=== PATIENT | female | born 1985 | race Two or more races ===

== ENCOUNTER 2024-07-04 19:50 | Emergency (ER) | payer MEDICAID ==
[~2024-07-04] VITALS: Ht 182.9 cm; Wt 83.5 kg
[2024-07-04 20:00] VITALS: BP 115/78; PULSE 92; RESP 16; O2SAT 100
[2024-07-04] MEDS ORDERED: CEPH250C PO (21:59)
[2024-07-04] MEDS ORDERED: IBUP-1455 PO (21:59)
[2024-07-04] MEDS ORDERED: IBUPROFEN 800 MG TAB PO ONE (22:00)
[2024-07-04] MEDS ORDERED: CEPHALEXIN 250 MG CAP PO ONE (22:00)
== END 2024-07-04 23:56 | disposition left against medical advice (07) ==
LOC: ER 19:50
DX: L02.412 Cutaneous abscess of left axilla (principal); Z41.8 Encounter for other procedures for purposes other than remedying health state